=== PATIENT | female | born 1950 | race Caucasian/White ===

== ENCOUNTER 2019-08-12 08:17 | Day surgery (SDC) | payer MEDICARE, BC ==
[~2019-08-12 08:17] MED LIST: CEFAZOLIN 2 Gram 2 GM/50 ML BAG IVPB ONE; FAMOTIDINE 20MG TABLET PO ONE; MECLIZINE 25 MG TABLET PO ONE; METOCLOPRAMIDE 10 MG TABLET PO ONE
[2019-08-12] MEDS ORDERED: DEXAMETHASONE 4 MG/ML 1ML VIAL IVP ONE (08:18)
[2019-08-12] MEDS ORDERED: EPHEDRINE SULFATE 50 MG/ML ML IV ONE (08:18)
[2019-08-12] MEDS ORDERED: PROPOFOL 10 MG/ML VIAL IV ONE (08:18)
[2019-08-12] MEDS ORDERED: LIDOCAINE 2% MDV (20MG/ML) 20ML VIAL IV ONE (08:18)
[2019-08-12] MEDS ORDERED: MIDAZOLAM HCL 2MG/2ML VIAL IV ONE (08:18)
[2019-08-12] MEDS ORDERED: ROPIVACAINE HCL (NAROPIN) /PF 5MG/ML 20ML VIAL IV ONE (08:18)
[2019-08-12] MEDS ORDERED: BUPIVACAINE LIPOSOME/PF 133MG/10ML VIAL IV ONE (08:18)
[2019-08-12] MEDS ORDERED: RINGERS SOLUTION,LACTATED 1,000 ML IV ONE ×3 (09:00→13:19)
[2019-08-12] MEDS ORDERED: TRAMADOL HCL 50 MG TABLET PO PRN ×2 (15:30)
[2019-08-12] MEDS ORDERED: OXYCODONE HCL/APAP 5MG/325MG TABLET PO PRN ×2 (15:30)
[2019-08-12] MEDS ORDERED: METOCLOPRAMIDE HCL 10 MG/2 ML VIAL IVP PRN (15:30)
[2019-08-12] MEDS ORDERED: ZOLPIDEM TARTRATE 5 MG TABLET PO PRN (15:30)
[2019-08-12] MEDS ORDERED: ACETAMINOPHEN 325 MG TAB PO PRN (15:30)
[2019-08-12] MEDS ORDERED: HYDROMORPHONE HCL 2 MG/ML VIAL IV PRN (15:30)
[2019-08-12] MEDS ORDERED: SENNOSIDES/DOCUSATE SODIUM UD CAPSULE PO PRN (15:30)
[2019-08-12] MEDS ORDERED: MAGNESIUM HYDROXIDE 30 ML UDC PO PRN (15:30)
[2019-08-12] MEDS ORDERED: DIPHENHYDRAMINE HCL 25 MG CAPSULE PO PRN (15:30)
[2019-08-12] MEDS ORDERED: RINGERS SOLUTION,LACTATED 1,000 ML IV SCH (15:30)
[2019-08-12] MEDS ORDERED: AL HYDROX/MAG HYDROX 30ML UD PO PRN (15:30)
[2019-08-12] MEDS ORDERED: ONDANSETRON HCL IV 4 MG/2 ML VIAL IVP PRN (15:30)
[2019-08-12] MEDS ORDERED: HYDROCODONE/APAP 5/325MG TABLET PO PRN (15:30)
[2019-08-12] MEDS: HYDROCODONE/APAP 5/325MG TABLET PO PRN ×2 (16:01→20:53)
[2019-08-12] MEDS ORDERED: PROPRANOLOL HCL 10 MG TABLET PO SCH (17:00)
[2019-08-12] MEDS ORDERED: LISINOPRIL 10 MG TABLET PO SCH (17:00)
[2019-08-12] MEDS ORDERED: HYDROCHLOROTHIAZIDE 25 MG TABLET PO SCH (17:00)
--- NOTE | 2019-08-12 17:38 | Rehab Evaluation ---
Patient Information - Patient Information Diagnosis: L Knee DJD Ordered Treatment: PT Evaluate and Treat Status: Initial Evaluation Surgery: Yes (L TKA) Date of Surgery: 08/12/19 Past Medical/Surgical Hx: PAST MEDICAL/SURGICAL HISTORY Surgery to Affected Area? No Recent Surgery? Past Surgical History LEFT KNEE ORIF AND HARDWARE REMOVAL 2000 RTKA 2014 BREAST REDUCTION 1988 TONSILECTOMY 1958 BLADDER SUSPENSION BRONCOSCOPY FOR INHALED PEANUT PMH - Respiratory Hx Respiratory Disorders Yes Hx Bronchitis Yes: NOTHING RECENT Hx Pneumonia Yes: ASPIRATION PNEUMONIA X'S 1 AND 2 OTHER EPISODES Hx of Productive Cough Yes: COUGH "SINCE " UNKNOWN ETIOLOGY OCCASS PRODUCTIVE PMH - Cardiovascular Hx Cardiovascular Disorders Yes Hx Abnormal EKG Yes: SHOWS [place] HAS NOT CHANGED IN MANY YEARS Hx Heart Attack Yes: SHOWS ON EKG NO HX Hx Hypertension Yes: ON MEDS WITH GOOD CONTROL HTN DX'D AT AGE 19 Hx Rheumatic Fever Yes: SOMETIME BETWEEN 4-9 Hx Heart Murmur Yes: IN TEENS Exercise Tolerance Fair Comment: HYPERLIPIDEMIA PMH - Neuro Hx Neurological Disorders Yes Hx Headaches Yes: OCCASSIONALLY ALLERGIES Hx Weakness Yes: LEFT KNEE PMH - GI Hx Gastrointestinal Disorders Yes Hx Gastroesophageal Reflux Yes: WELL CONTROLLED ON MEDS PMH - Hx Genitourinary Disorders Yes Hx Age of Menopause 50 Hx Bladder Problem Yes: INCONTINENCE WEARS A PAD Hx Renal Disease Yes: CHRONIC PYELONEPHRITIS DX'D AGE 19 NOTHING RECENT Hx Urinary Tract Infection Yes: OCCASSIONALLY Comment: 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 JOSE GAMEZ PMH - Endocrine Hx Endocrine Disorders No PMH - Musculoskeletal Hx Musculoskeletal Disorders Yes Hx Arthritis Yes: LEFT KNEE, NECK, RIGHT SHOULDER Hx Back Injury Yes: T 9 FX Hx Osteoporosis Yes PMH - Psych Hx Psychiatric Problems No PMH - Hematology/Oncology Hx Hematology/Oncology Yes Disorders Hx Blood Transfusion Reaction No Premorbid Status: Detail (Patient was independent in ADLs prior to surgery.) Social History: Detail (Patient lives in a 2-story home with her . She says that she does not need to use the second story of her home after returning home from surgery. There are 5 steps to enter her home with a railing on the L when entering. In the bathroom there is a a walk-in shower with grab bars and a shower bench. There is also an elevated toilet seat but no grab bars by the toilet. She has a two-wheeled walker available to her at home.) Precautions: [place], Fall, Other (WBAT on the L LE) - Time With Patient Total Time Spent With Patient (Min): 30 Treatment Procedures: Detail (Inital evaluation; low complexity Patient was left supine in her bed with her call light and bedside table within reach. The nursing staff was notified of her position.) Subjective Information - Subjective Information Per Patient (Patient stated that she was feeling okay and had just received some pain medication.) Objective Data - Pain Pain Present: No - Mental Status Patient Orientation: Oriented x3 - Visual Perception Appears within normal limits for therapeutic activities - ROM Not within normal limits (Range of motion of the L knee limited as expected s/p L TKA procedure. L hip and ankle and R LE range of motion within functional limits.) - Strength/Tone Not within normal limits (Strength of L knee is decreased as expected s/p L TKA procedure. L ankle and hip and R LE strength is within functional limits.) - Bed Mobility Needs Assist (Patient was independent in moving her body to the edge of the bed but needed assistance in moving her surgical leg. Patient used the trapeze to move to the head of the bed.) - Transfers Needs Assist (Patient was independent in sit to stand and stand to sit. She required assistance with the surgical leg to move it to the ground.) - Balance Balance Sitting: Good Balance Standing: Good - Sensation Intact - Gait Detail (Patient ambulated 30 feet with WBAT on the L LE and a 2 wheeled walker. Contact guard of 1 was needed during ambulation.) Therapy Assessment - Therapy Assessment Detail (Patient presents with decreased range of motion and strength in the L LE that make her elgible for inpatient physical therapy. Patient will progress towards meeting her goals after the next sessions to be able to be discharged.) Problem List - Problem List Physical Therapy Problem List: Detail (1. Decreased L knee ROM 2. Decreased L knee strength 3. Decreased ambulatory distance 4. Unable to negotiate stairs) Goals - Goals Physical Therapy Goals: 1. Patient will be independent in her HEP to increase strength and ROM needed to complete ADLs. 2. Patient will be able to negotiate 5 stairs with supervision to be able to enter and leave her home. 3. Patient will be able to ambulate household distances independently to get around her home to be able to complete ADLs. Prognosis - Prognosis Good Plan - Plan Physical Therapy Plan: Patient will be seen for 1-2 more sessions and will include gait training, stair training, therapeutic exercise, and HEP instruction.
[2019-08-12] MEDS: CEFAZOLIN 2 Gram 2 GM/50 ML BAG IVPB SCH (20:54)
[2019-08-12] MEDS ORDERED: ASCORBIC ACID 500 MG TAB PO SCH (22:00)
[2019-08-12] MEDS ORDERED: ATORVASTATIN 20 MG TABLET PO SCH (22:00)
[2019-08-12] MEDS ORDERED: FLUTICASONE PROPIONATE 50MCG NASAL 16 GM BTL SCH (22:00)
[2019-08-12] MEDS: ASPIRIN 325 MG TAB ENTERIC-COATED PO SCH (22:03)
[2019-08-13] MEDS: HYDROCODONE/APAP 5/325MG TABLET PO PRN ×2 (02:50→08:11)
[2019-08-13] MEDS: CEFAZOLIN 2 Gram 2 GM/50 ML BAG IVPB SCH (04:02)
[2019-08-13] MEDS ORDERED: PANTOPRAZOLE SODIUM 40 MG TABLET PO SCH (07:00)
[2019-08-13] MEDS: ASPIRIN 325 MG TAB ENTERIC-COATED PO SCH (09:36)
--- NOTE | 2019-08-13 10:39 | Rehab Evaluation ---
Patient Information - Patient Information Diagnosis: L Knee DJD Ordered Treatment: PT Evaluate and Treat Status: Initial Evaluation Surgery: Yes (L TKA) Date of Surgery: 08/12/19 Past Medical/Surgical Hx: PAST MEDICAL/SURGICAL HISTORY Surgery to Affected Area? No Recent Surgery? Past Surgical History LEFT KNEE ORIF AND HARDWARE REMOVAL 2000 RTKA 2014 BREAST REDUCTION 1988 TONSILECTOMY 1958 BLADDER SUSPENSION BRONCOSCOPY FOR INHALED PEANUT PMH - Respiratory Hx Respiratory Disorders Yes Hx Bronchitis Yes: NOTHING RECENT Hx Pneumonia Yes: ASPIRATION PNEUMONIA X'S 1 AND 2 OTHER EPISODES Hx of Productive Cough Yes: COUGH "SINCE " UNKNOWN ETIOLOGY OCCASS PRODUCTIVE PMH - Cardiovascular Hx Cardiovascular Disorders Yes Hx Abnormal EKG Yes: SHOWS [place] HAS NOT CHANGED IN MANY YEARS Hx Heart Attack Yes: SHOWS ON EKG NO HX Hx Hypertension Yes: ON MEDS WITH GOOD CONTROL HTN DX'D AT AGE 19 Hx Rheumatic Fever Yes: SOMETIME BETWEEN 4-9 Hx Heart Murmur Yes: IN TEENS Exercise Tolerance Fair Comment: HYPERLIPIDEMIA PMH - Neuro Hx Neurological Disorders Yes Hx Headaches Yes: OCCASSIONALLY ALLERGIES Hx Weakness Yes: LEFT KNEE PMH - GI Hx Gastrointestinal Disorders Yes Hx Gastroesophageal Reflux Yes: WELL CONTROLLED ON MEDS PMH - Hx Genitourinary Disorders Yes Hx Age of Menopause 50 Hx Bladder Problem Yes: INCONTINENCE WEARS A PAD Hx Renal Disease Yes: CHRONIC PYELONEPHRITIS DX'D AGE 19 NOTHING RECENT Hx Urinary Tract Infection Yes: OCCASSIONALLY Comment: SEES [employer] EVERY YEAR DR. JOSE GAMEZ PMH - Endocrine Hx Endocrine Disorders No PMH - Musculoskeletal Hx Musculoskeletal Disorders Yes Hx Arthritis Yes: LEFT KNEE, NECK, RIGHT SHOULDER Hx Back Injury Yes: T 9 FX Hx Osteoporosis Yes PMH - Psych Hx Psychiatric Problems No PMH - Hematology/Oncology Hx Hematology/Oncology Yes Disorders Hx Blood Transfusion Reaction No Premorbid Status: Detail (Patient was independent with all ADLs and fxl mobility prior to surgery, not using an AD for fxl ambulation, driving, and volunteering 2x/wk.) Social History: Detail (Patient lives in a 2-story home with her . Her main bed/bath are on the main level and she does not need to use the second story of her home. There are 5 steps to enter her home with a railing on the L when entering. In the bathroom there is a a walk-in shower with grab bars and a built-in shower bench. There is also an elevated toilet seat but no grab bars by the toilet. She has a two-wheeled walker and 4-prong cane available.) Precautions: [place], Fall, Other (WBAT on the L LE) - Time With Patient Total Time Spent With Patient (Min): 18 (1 eval) Treatment Procedures: Detail (OT eval: Low complexity) Subjective Information - Subjective Information Per Patient (Ok to see per RN Letty. Pt states she's looking forward to going home today.) Objective Data - Pain Pain Present: Yes Pain Scale Used: Numeric (1 - 10) (initially 6/10, RN notified and gave Pt pain meds, 4/10 upon therapist return and eval) - Mental Status Patient Orientation: Oriented x3 - Visual Perception Appears within normal limits for therapeutic activities - ROM Within normal limits (B UEs) - Strength/Tone Within normal limits (B UEs) - Coordination Appears within normal limits for therapeutic activities - Bed Mobility Independent (Pt uses UEs to lift LLE into/out of bed) - Transfers Independent (Sit to/from stand from low surfaces to FWW, good balance and safety awareness.) - Balance Balance Sitting: Good Balance Standing: Fair - Sensation Intact - Gait Detail (Functional ambulation within bedroom with FWW and supervision progressing to MOD I, Pt cindyos good safety awareness and kicks L leg out when sitting for safety when surface is very low.) - ADL's/IADL's Detail (OT educated Pt on adaptive tech for LB dressing, Pt demos mod I to don underwear, pants, and socks, reports her will assist with tedhose and verbalizes understanding of tips to get them on. OT educ. Pt on importance of keeping walker with her AAT and mod techs. for kitchen, bathroom, and laundry safety at home.) Therapy Assessment - Therapy Assessment Detail (Pt demos safety and mod I with LB dressing and verbalizes safe technique for home tasks with good safety awareness.) Patient Education - Patient Education Response: Return Demonstration, Verbalize Understanding Teaching Method: Discussion, Demonstration Teaching Recipient: Patient Barriers To Learning: None Problem List - Problem List Physical Therapy Problem List: Detail (1. Decreased L knee ROM 2. Decreased L knee strength 3. Decreased ambulatory distance 4. Unable to negotiate stairs) Occupational Therapy Problem List: Detail (No further skiled IP OT needs identified, DC IP OT.) Goals - Goals Physical Therapy Goals: 1. Patient will be independent in her HEP to increase strength and ROM needed to complete ADLs. 2. Patient will be able to negotiate 5 stairs with supervision to be able to enter and leave her home. 3. Patient will be able to ambulate household distances independently to get around her home to be able to complete ADLs. Occupational Therapy Goals: No further skilled IP OT needs/goals identified. Prognosis - Prognosis Good Plan - Plan Physical Therapy Plan: Patient will be seen for 1-2 more sessions and will include gait training, stair training, therapeutic exercise, and HEP instruction. Occupational Therapy Plan: No further IP OT needs identified, DC OT services. Thank you for this referral.
--- NOTE | 2019-08-13 15:41 | Operative Note ---
DATE OF SURGERY: 08/12/2019 SURGEON: Doroteo Caldwell DO PREOPERATIVE DIAGNOSIS: Osteoarthritis of the left knee. POSTOPERATIVE DIAGNOSIS: Osteoarthritis of the left knee. OPERATION: Left total knee arthroplasty. DESCRIPTION OF PROCEDURE: This 69-year-old female was taken to the operating room and placed in the supine position on the operating room table. A spinal anesthetic was administered. The left lower extremity was elevated. It was prepped with Hibiclens and draped in the usual sterile fashion. It was exsanguinated and the tourniquet inflated to 300 mmHg. All scrub personnel wore personal isolation suits. An anterior longitudinal midline incision was made followed by a medial parapatellar arthrotomy incision. An intracondylar drill hole was made for the intramedullary alignment charles, and an 11 mm cut was made in the distal femur at 5 degrees valgus due to the patient's flexure contracture. The wafer of bone was removed. Sizing jig was affixed and size 65 was seen to be the appropriate size. The 4-in-1 cutting block was then pinned in 3 degrees of external rotation. The appropriate cuts were made. Wafer of bone were removed. Remnants of the anterior cruciate ligament were divided. The extramedullary alignment guide was used to cut the proximal tibia, and once the jig had been placed in the appropriate position, it was pinned referencing a 10 mm cut off the lateral tibial plateau. The cut was made with a 3-degree posterior slope. The wafer of bone was removed. Remnants of the menisci and osteophytes were removed from the posterior aspect of the joint. Significant osteophyte formation was noted medially. The tibia was sized to a 71 and subsequently the stem punch was used. The wound copiously irrigated with pulse lavage lactated Ringer's solution. The tissue tensioning device demonstrated equal flexion/extension balance. The components were stable with a 12 mm bearing. The patella was then cut and restored to anatomic height with a 34 x 7.8 mm trial. The knee was taken through range of motion and excellent stability of all components was noted. All trial components were then removed and the wound copiously irrigated with pulse lavage lactated Ringer's solution. All bony surfaces were dried and all components cemented and excess cement removed after the insertion of each component. Initially the tibial baseplate was cemented into place followed by the insertion of the tibial bearing, femoral component, and finally the patella. Once the cement had hardened, the knee was again taken through range of motion and found to be stable. The wound copiously irrigated with lactated Ringer's solution and suctioned dry. A drain was placed through a separate stab incision, and the arthrotomy incision was closed with a #2 Vicryl with additional TiCron sutures noted for the stability. The subcutaneous tissue was closed with 0 Vicryl and the skin was stapled. Sterile dressings were applied. The patient was taken to the recovery room in satisfactory condition with a [facility]. GROSS PATHOLOGY: This patient had previous patellar surgery, significant amount of scar formation was present which was debrided and excellent mobility then of her patella was noted. There was no contracture of the tendon. The patient demonstrated severe full-thickness articular cartilage loss bilaterally and at the patellofemoral joint. The patient also demonstrated a flexion contracture which was corrected at the time of the surgery. Final components inserted were a [employer] size 65 cruciate retaining femoral component, a 71 tibia, an 12 mm anterior stabilized E1 bearing, and a 34 x 7.8 mm patella being used. JUWAN
--- NOTE | 2019-08-13 16:15 | Physical Therapy Tx Note ---
Physical Therapy Tx Note - Treatment Note Tolerated: Good Total Time Spent With Patient: 30 Physical Therapy Tx Note: Detail (Pt states that her knee is sore this morning but overall doing well. Pt completes all transfers and bed mobility independently and with minimal complaint of difficulty. Pt ambulated with front wheeled walker 100 feet, and ascended and descended 3 stairs all with contact guard assist. Pt requires min verbal cues with stairs. Pt returned to room and bed with some soreness after walking. Pt completed ther ex of heel slides, glute sets, quad sets, and ankle pumps x 10 each bilaterally. Pt completed 5 sit to stands independently. Pt returned to bed, ice pack applied, compression sleeves were attached, and call button near patient. Pt has met all goals of PT at this time.) Physical Therapy Problem List: Detail (1. Decreased L knee ROM 2. Decreased L knee strength 3. Decreased ambulatory distance 4. Unable to negotiate stairs) Physical Therapy Goals: 1. Patient will be independent in her HEP to increase strength and ROM needed to complete ADLs. 2. Patient will be able to negotiate 5 stairs with supervision to be able to enter and leave her home. 3. Patient will be able to ambulate household distances independently to get around her home to be able to complete ADLs. Pt has met all goals of PT at this time. Prognosis: Good Physical Therapy Plan: Patient will be discharged from PT due to all goals met.
--- NOTE | 2019-08-16 13:11 | Discharge Summary ---
DATE OF ADMISSION: 08/12/2019 DATE OF DISCHARGE: 08/13/2019 ADMITTING DIAGNOSIS: Osteoarthritis of the left knee. DISCHARGE DIAGNOSIS: Osteoarthritis of the left knee. OPERATIVE PROCEDURE: Elective left total knee arthroplasty. HOSPITAL COURSE: This 69-year-old female was admitted to the hospital for elective total knee arthroplasty, tolerated the operative procedure well. The drain was removed the first postoperative day. She was set up for outpatient physical therapy. She was instructed to use her SOLIS hose during the day and remove them at night. She will take aspirin 325 mg daily for a month and she will take Percocet, #40, one or two every 6 hours as necessary for pain, 5/325 mg. Routine wound care instructions were given. She will follow up in 2 weeks. Should she have any problems prior to being seen, she was instructed to call my office. JUWAN
== END 2019-08-13 14:40 | disposition home or self-care (01) ==
LOC: SUR 08:17 → MEDSURG 13:59 → SUR 08-13 14:40
PROVIDERS: ATTEND Orthopaedic Surgery
DX: M17.12 Unilateral primary osteoarthritis, left knee (principal); I10 Essential (primary) hypertension; E78.00 Pure hypercholesterolemia, unspecified; M81.0 Age-related osteoporosis without current pathological fracture; I25.2 Old myocardial infarction; K21.9 Gastro-esophageal reflux disease without esophagitis
CPT/HCPCS: 76942; C9290; J7120